=== PATIENT | male | born 1980 | race Caucasian/White ===

== ENCOUNTER → 2018-08-15 12:16 | Outpatient (CLI) | payer OTHER, MEDICAID, SELFPAY ==
[2018-08-15 12:51] LABS: Add Manual Diff / Slide Review NO; Basophils Absolute Auto 0 /uL (0-100); Basophils Percent Auto 0.5 % (0-2); Eosinophils Absolute Auto 100 /uL (0-450); Hemoglobin 15.5 g/dL (13.5-17.5); Lymphocytes Absolute Auto 3100 /uL (1100-4500); Lymphocytes Percent Auto 42.4 % (25-40); Mean Corpuscular HGB Conc 34.4 % (30-36); Mean Corpuscular Hemoglobin 31.1 PG (26-34); Mean Corpuscular Volume 90.4 fL (80-100); Monocytes Absolute Auto 600 /uL (0-900); Monocytes Percent Auto 8.3 % (3-14); Neutrophils Absolute Auto 3400 /uL (1500-7000); Neutrophils Percent Auto 46.8 % (50-75); Platelet Count 275 X10^3/uL (150-400); Red Blood Cell Count 4.98 X10^6/uL (4.5-5.9); Red Cell Distribution Width 13.3 % (11.6-14.8); White Blood Cell Count 7.3 X10^3/uL (4.5-11.0)
[2018-08-15 13:03] LABS: Alanine Aminotransferase 43 IU/L (21-72); Albumin 4.8 g/dL (3.5-5.0); Albumin Globulin Ratio 1.4 (1.0-2.8); Alkaline Phosphatase 59 U/L (38-126); Aspartate Aminotransferase 29 IU/L (17-59); BUN Creatinine Ratio 18.8 (6-22); Bilirubin Total 0.7 mg/dL (0.2-1.3); Blood Urea Nitrogen 15 mg/dL (9-20); Calcium 9.4 mg/dL (8.4-10.2); Carbon Dioxide 27 mmol/L (22-32); Chloride 101 mmol/L (98-107); Estimated Glomerular Filt Rate > 60.0 mL/min (>60); Globulin 3.5 g/dL (1.7-4.1); Glucose 92 mg/dL (70-100); HEMOLYSIS < 15 (0-50); Potassium 4.4 mmol/L (3.4-5.1); Sodium 139 mmol/L (137-145); Total Protein 8.3 g/dL (6.3-8.2)
== END ==
PROVIDERS: PCP Family Medicine; Visit Provider Nurse Practitioner Family
DX: K62.5 Hemorrhage of anus and rectum (principal); R19.5 Other fecal abnormalities
CPT/HCPCS: 36415; 80053; 85025

== ENCOUNTER 2018-09-23 09:43 | Day surgery (SDC) | payer OTHER, MEDICAID, SELFPAY ==
[2018-09-23] VITALS (18 sets, daily range): BP systolic 97–135; BP diastolic 52–83; PULSE 50–110; RESP 10–97; TEMP 36.3–36.4; O2SAT 96–100; BMI 25.9
--- NOTE | 2018-09-23 | PATH_ITS ---
[facility] Accession Number: [id number] . 01 Material submitted: . PART A: CECAL POLYP PART B: COLON POLYP AT 25CM . 02 Diagnosis: A. Biopsy, Cecal Polyp: Sessile serrated adenoma involving single biopsy fragment. . B. Biopsy, Colon Polyp at 25 cm: Three polypoid shaped fragments of normal appearing colon mucosa consistent with mucosal polypoid redundancy. Negative for evidence of neoplasm and/or hyperplasia on multiple sections. MRV/09/26/2018 . 02 Electronically signed: . Gm Cohen MD, Pathologist NPI- [id number] . 01 Gross description: . Part A: CECAL POLYP: Received in formalin are 2 fragment(s) of guallpa, soft tissue measuring 0.2 x 0.2 x 0.2 cm to 0.5 x 0.4 x 0.2 cm which is entirely submitted and submitted entirely in 1 cassette(s) Part B: COLON POLYP AT 25CM: Received in formalin are 3 fragment(s) of guallpa, soft tissue measuring 0.2 x 0.1 x 0.1 cm to 0.3 x 0.2 x 0.2 cm which is entirely submitted and submitted entirely in 1 cassette(s) /DMC /DMC . 02 Pathologist provided ICD-10: D12.0 . 02 CPT . 175380, [id number] Performed at: 01 [facility] [address], [place], [place] [id number] MD Doc Lang MD Phone: [phone] Performed at: 02 [facility] [address] , [place], [place] [id number] MD Lyudmila Cortes MD Phone: [phone]
[2018-09-23] MEDS: SODIUM CHLORIDE 0.9% 1,000 ML 200 ML IV (10:26)
--- NOTE | 2018-09-23 11:15 | PM.PREOP ---
Pre-operative Note Interval Note History & Physical reviewed/Exam performed by Physician: Yes Changes to H&P: No ASA Class (for procedural sedation): I
[2018-09-23] MEDS: MIDAZOLAM 5 MG/5 ML VIAL IV (11:39)
[2018-09-23] MEDS: fentaNYL 250 MCG/5 ML INJ IV (11:39)
--- NOTE | 2018-09-23 11:57 | P.OP.ENDO_ITS ---
Operative Date/Time/Diagnoses Date of procedure: 09/23/18 Time of procedure: 11:51 Pre-op diagnosis: Rectal bleeding. Change in bowel habits. Family history of colon cancer in his mother at a young age. Post-op diagnosis: same (Two small polyps. Very narrow anal verge) Procedure & Clinicians Study performed: Colonoscopy with cold biopsy Same procedure as scheduled: Yes Indications: Determine cause of bleeding. screening for colon cancer. Mother had cancer in her 40s. Patient is 38. This is his 1st colonoscopy. Surgeon: Gerardo Shepard Procedure Notes SCOAP/Timeout: Performed Procedure in detail: Patient is placed in left lateral decubitus position underwent IV sedation directed by the surgeon consisting of fentanyl and Versed. Digital exam was remarkable for very tight sphincter. I actually applied lid ocaine gel to his anal verge. It barely admitted my index finger. the scope was inserted advanced through the rectum into the sigmoid descending transverse and ascending colon. We reached the cecum identified by the ileocecal valve and the appendiceal opening. The opening was cannulated and the terminal ileum was normal in appearance. There was a small polypoid lesion in the cecum which was biopsied and appeared to be removed. The scope was gradually brought out. No mucosal lesions were seen until I reached about 25 cm where another small polyp was identified removed. the scope was ultimately brought into the rectum and retroflexed. The anus had a normal appearance. The scope was slowly brought through it. patient tolerated the procedure well. the prep was good. Suspect patient's problem is due to his very tight anus. Will prescribe topical nifedipine to see if it helps. Scope withdrawal time: 9.75 min Sedation minutes: 25 Findings: polyp (Two small lesions. One in the cecum and 1 at 25 cm. ) and other findings (Narrowed anal verge.) Specimen(s): other (Polyps) Complications: none Recommendations: Colonscopy in 5 years (Due to family history and personal history of polyps)
[2018-09-23] MEDS: ONDANSETRON 4 MG/2 ML INJ IV (12:02)
[2018-09-23] MEDS: SCOPOLAMINE 1 PATCH TOP (12:05)
[2018-09-23] MEDS: PROCHLORPERAZINE 10 MG/2 ML VIAL IV (12:15)
--- NOTE | 2018-09-23 12:56 | SUR.PHASEI ---
UPON ARRIVAL TO PACU PT HAD NAUSEA AND VOMITING, AND DIAPHORETIC, DENIES ANY PAIN , BLOOD GLUCOSE 95, VSS, DR MARTINEZ NOTIFIED, MEDICATED ORDERED, COMFORT MEASURES PROVIDED.
--- NOTE | 2018-09-23 13:21 | SUR.PHASEI ---
PT SLEEPING QUIETLY, VSS, IV PATENT, DR GOLDSTEIN IN TO SEE PT, WILL CONTINUE TO MONITOR PT AND ALLOW HIM TO SLEEP.
== END 2018-09-23 14:48 | disposition home or self-care (01) ==
PROVIDERS: PCP Family Medicine; Visit Provider Specialist
PROC: 0DJD8ZZ Inspection of Lower Intestinal Tract, Via Natural or Artificial Opening Endoscopic (ICD-10-PCS; CPT 45378; principal; 2018-09-23 10:45)
DX: K62.5 Hemorrhage of anus and rectum (principal); R19.4 Change in bowel habit; Z80.0 Family history of malignant neoplasm of digestive organs; Z87.891 Personal history of nicotine dependence; D12.0 Benign neoplasm of cecum; K63.5 Polyp of colon
CPT/HCPCS: 45380; 99152; 99153; J0780; J2250; J2405; J3010

== ENCOUNTER → 2020-09-19 15:44 | Outpatient (CLI) | payer OTHER, MEDICAID, SELFPAY ==
[2020-09-19] MEDS: COVID-19 VACC #1, MRNA(MOD) 100 MCG/0.5 ML VIAL IM (15:49)
== END ==
PROVIDERS: PCP Nurse Practitioner Family; Visit Provider Internal Medicine
DX: Z23 Encounter for immunization (principal)
CPT/HCPCS: 0011A; 91301

== ENCOUNTER → 2020-10-17 15:37 | Outpatient (CLI) | payer OTHER, MEDICAID, SELFPAY ==
[2020-10-17] MEDS: COVID-19 VACC #2, MRNA(MOD) 100 MCG/0.5 ML VIAL IM (15:45)
== END ==
PROVIDERS: PCP Nurse Practitioner Family; Visit Provider Internal Medicine
DX: Z23 Encounter for immunization (principal)
CPT/HCPCS: 0012A; 91301

== ENCOUNTER → 2023-08-20 11:23 | Outpatient (CLI) | payer OTHER, MEDICAID, SELFPAY | PROVIDERS: Visit Provider Nurse Practitioner Family | DX: L02.414 Cutaneous abscess of left upper limb (principal) | CPT/HCPCS: 87070; 87075; 87077; 87205 ==

== ENCOUNTER → 2023-09-12 14:17 | Outpatient (CLI) | payer OTHER, MEDICAID, SELFPAY | PROVIDERS: Visit Provider Nurse Practitioner Family | DX: J02.9 Acute pharyngitis, unspecified (principal) | CPT/HCPCS: 87070; 87880 ==

== ENCOUNTER → 2025-02-27 12:36 | Outpatient (CLI) | payer OTHER, SELFPAY | PROVIDERS: Visit Provider Physician Assistant | DX: J02.9 Acute pharyngitis, unspecified (principal) | CPT/HCPCS: 87070; 87147 ==

== ENCOUNTER 2025-04-22 22:53 | Emergency (ER) | payer OTHER, SELFPAY ==
[2025-04-22 22:59] VITALS: BP 161/93; PULSE 68; RESP 16; TEMP 36.2; O2SAT 100; BMI 25.0
[2025-04-23 00:22] VITALS: O2SAT 99
[2025-04-23 00:23] VITALS: BP 144/98; PULSE 71; O2SAT 98
[2025-04-23 00:30] VITALS: BP 144/89; PULSE 65; O2SAT 96
--- NOTE | 2025-04-23 00:37 | ED.SKABFB ---
HPI - Skin/Abscess/Foreign Bdy General Chief complaint: Skin/Abscess/Foreign Body Stated complaint: Poss staph infection, boils Time Seen by Provider: 04/23/25 00:33 Source: patient Mode of arrival: Ambulatory History of Present Illness HPI narrative: 45-year-old male with left lower dental caries, having started amoxicillin/Augmentin antibiotic prescribed by dentist, awaiting tooth extraction procedure. Noticed anterior chest skin infection, not itchy but painful, no bite or sting, concern for staph/MRSA infection. Patient does shave his anterior torso. There are 2 skin lesions in the anterior chest of his concern, no drainage procedure. No injections to those sites. No punctures or self-inflicted wounds there. Related Data Home Medications ?Medication ?Instructions ?Recorded ?Confirmed ibuprofen 600 mg tablet 600 mg PO Q6H PRN 02/27/25 02/27/25 penicillin V potassium 500 mg 500 mg PO 4XD 02/27/25 02/27/25 tablet Previous Rx's ?Medication ?Instructions ?Recorded albuterol sulfate 90 mcg/actuation 1 puff inhalation Q4-6H PRN 11/15/18 aerosol inhaler shortness of breath or wheezing #8 grams amoxicillin 875 mg-potassium 1 tab PO Q12H #10 tabs 02/27/25 clavulanate 125 mg tablet prednisone 20 mg tablet 20 mg PO DAILY #3 tabs 02/27/25 doxycycline hyclate 100 mg tablet 100 mg PO BID #14 tabs 04/23/25 Allergies Allergy/AdvReac Type Severity Reaction Status Date / Time No Known Drug Allergies Allergy Verified 04/22/25 22:59 Patient History Medical History Constipation Arthritis Sinus congestion Chest pain GERD (gastroesophageal reflux disease) Healthy adult male Bowel trouble Social History household members: spouse Smoking Status: Current every day smoker Tobacco: How many years used: 5 second hand exposure: No alcohol intake: current (Beer once a week) substance use type: marijuana (smoke) Smoking Status: Current every day smoker Exam Narrative Exam Narrative: GENERAL: Well-developed patient, in mild distress. HEAD: Atraumatic. Normocephalic. EYES: Pupils equal round and reactive. Extraocular motions intact. No scleral icterus. No injection or drainage. ENT: Nose without bleeding, purulent drainage. Throat without erythema, tonsillar hypertrophy or exudate. Airway patent. NECK: Trachea midline. Non tender CARDIOVASCULAR: Regular rate and rhythm without murmurs, gallops, or rubs. RESPIRATORY: Clear to auscultation. Breath sounds equal bilaterally. No wheezes, rales, or rhonchi. GASTROINTESTINAL: Abdomen soft, non-tender, nondistended. EXTREMITIES: No edema or joint tenderness. BACK: Nontender without deformity or crepitance. No flank tenderness. NEURO: AOx3. Motor functions grossly nonfocal. SKIN: 2 skin lesions ventral torso upper abdominal wall consistent with folliculitis, no fluctuance, no expressible fluid. Erythematous areas proximally 1.5-2 cm oval. No vesicle. No crepitance. Initial Vital Signs Initial Vital Signs: Vital Signs Temperature 97.2 F L 04/22/25 22:59 Pulse Rate 68 04/22/25 22:59 Respiratory Rate 16 04/22/25 22:59 Blood Pressure 161/93 H 04/22/25 22:59 Pulse Oximetry 100 04/22/25 22:59 Oxygen Delivery Method Room Air 04/22/25 22:59 Course Orders Ordered: Discontinued Medications Doxycycline Hyclate (Doxycycline Hyclate 100 Mg Tablet) 100 mg PO NOW ONE Stop: 04/23/25 00:44 Last Admin: 04/23/25 00:52 Dose: 100 mg Documented By: Tramadol HCl (Tramadol 50 Mg Prepack) 1 bottle MISC DIRECTED ONE Stop: 04/23/25 00:44 Last Admin: 04/23/25 00:52 Dose: 1 bottle Documented By: Tramadol HCl (Tramadol 50 Mg Tablet) 50 mg PO NOW ONE Stop: 04/23/25 00:44 Last Admin: 04/23/25 00:53 Dose: 50 mg Documented By: Vital Signs Vital signs: Vital Signs - 8 hr 04/22/25 22:59 04/23/25 00:22 04/23/25 00:23 Temperature 97.2 F L Pulse Rate 68 Respiratory Rate 16 Blood Pressure 161/93 H 144/98 H Pulse Oximetry 100 99 Oxygen Delivery Method Room Air 04/23/25 00:23 04/23/25 00:30 04/23/25 00:30 Temperature Pulse Rate 71 65 Respiratory Rate Blood Pressure 144/89 H Pulse Oximetry 98 96 Oxygen Delivery Method Room Air MDM - Skin/Abscess/Foreign Bdy MDM Narrative Medical decision making narrative: 45-year-old male with dental caries on oral amoxicillin/Augmentin prescribed from dentist awaiting dental tooth instruction, with concerns for MRSA skin infection anterior torso, does shave his skin. Two lesions anterior torso abdominal skin area, oval 1.5 by 2 cm, non fluctuant, non crepitance, no expressible fluid. Consistent with folliculitis. Could have staph infection, not improving with amoxicillin/Augmentin but 1st doses. We will add MRSA coverage for now, patient elects doxycycline we will we discussed options. Oral doxycycline dose given, prescription for further doxycycline sent to his pharmacy. Continue taking the amoxicillin/Augmentin for dental caries infection coverage. Follow up with dentist for likely extraction as planned. Regarding anterior torso skin wounds, advised recheck with your regular doctor if not improving in the next couple of days. Return precautions discussed. Patient also requested pain meds for his dental infection, apparently not given any pain medications from dentist. Taking ibuprofen [id number]. Oral tramadol dose given. Tramadol home pack dispensed. Discharge Plan Departure Patient Disposition: Home Clinical Impression: Dental caries, Folliculitis Activity Restrictions/Additional Instructions: Current therapy for left lower jaw dental Leah, awaiting extraction for your dentist. Just having started oral amoxicillin antibiotic. Now with skin rash noted front chest for 2 lesions. You do shaved the hair in that area, and clinically it appears consistent with folliculitis local skin infection associated with a hair follicle. No obvious purulence drainage, non fluctuant. Concern for MRSA staph infection. Unfortunately this would not be treated well with amoxicillin. We discussed switching antibiotics or addition of MRSA coverage antibiotic. You were elected to have additional antibiotic. Continue the amoxicillin for your dental caries infection as planned. Add doxycycline antibiotic, 1 tablet twice daily for now for folliculitis coverage that might not be covered well with amoxicillin. Follow up with your dentist as planned. Recheck skin area changes if not improving in the next couple of days with your regular doctor. Return earlier to this/nearest emergency department for any change worsening symptoms or any concerns prior. Continue taking [id number]-kyslull Tylenol and or Motrin as needed for dental pain. Home pack of tramadol also provided from ED this visit. Prescriptions: New doxycycline hyclate 100 mg tablet 100 mg PO BID Qty: 14 0RF No Action penicillin V potassium 500 mg tablet 500 mg PO 4XD ibuprofen 600 mg tablet 600 mg PO Q6H PRN prednisone 20 mg tablet 20 mg PO DAILY Qty: 3 0RF amoxicillin-pot clavulanate 875-125 mg tablet 1 tab PO Q12H Qty: 10 0RF albuterol sulfate 90 mcg/actuation HFA aerosol inhaler 1 puff INHALATION Q4-6H PRN (Reason: shortness of breath or wheezing) Qty: 8 1RF Referrals: Miscellaneous,Doctor, MD [Primary Care Provider, Medical] Stand Alone Forms: Patient Portal/API
[2025-04-23] MEDS: DOXYCYCLINE HYCLATE 100 MG TABLET PO (00:52)
--- NOTE | 2025-04-23 00:54 | PC.NURSE ---
Pt noted with 2 areas of redness on chest apx 2cm long. Pt reports painful to touch. no drainage noted.
--- NOTE | 2025-04-23 00:57 | PC.NURSE ---
Pt recently went to dentist for dental abscess, given amoxicillin but pain is not tolerable.
== END 2025-04-23 00:58 | disposition home or self-care (01) ==
PROVIDERS: Emergency Provider Emergency Medicine
DX: K02.9 Dental caries, unspecified (principal); L73.9 Follicular disorder, unspecified
CPT/HCPCS: 99283